=== PATIENT | female | born 1990 | race Caucasian/White ===

== ENCOUNTER 2016-09-09 19:51 | Emergency (ER) | payer OTHER ==
[2016-09-09 19:58] VITALS: BP 108/78; BMI 20.6
--- NOTE | 2016-09-09 21:13 | DR.GENAD ---
HPI - PCP Primary Care Physician: Eusebio Mcgee - HPI Comment HPI Comment: PAIN FROM SHOULDER DOWN TO WRIST. HAPPEN BEFORE COMING TO ED. - Complaint/Symptoms Chief Complaint Doctors Comments: PAIN LEFT UPPER EXTREMITIES. 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 Chief Complaint:: " I feel like my arm is broke (Left Arm) I was playing with the kids and they accidently jumped on it. I cant move it at all and it really hurts." - Nurses notes reviewed Nurses Notes Review: Yes - Source History Provided: Patient - Mode of Arrival Mode of Arrival: Ambulatory - Timing Onset of Chief Complaint: 09/09/16 Came on: Suddenly - Duration Duration: Constant Duration: Hours - Severity Severity: Moderate PMH - PMH Past Medical History: Yes Past Medical History: Diabetes, Dyslipidemia, Hypertension Past Surgical History: No - Family History History of Family Medical Conditions: Yes Family Medical History: Diabetes Mellitus, Cancer, Heart Failure - Social History Alcohol Use: None Do you use any recreational Drugs:: No Lives With: Family Lives Where: Home - infectious screening Have you traveled outside the country in the last 6 months?: No ROS - Review of Systems Constitutional: No Symptoms Reported Eyes: No Symptoms Reported ENTM: No Symptoms Reported Respiratoy: No Symptoms Reported Cardiovascular: No Symptoms Reported Gastrointestinal/Abdominal: No Symptoms Reported Genitourinary: No Symptoms Reported Neurological: No Symptoms Reported Musculoskeletal: Left, Arm, Forearm Integumentary: No Symptoms Reported Hematologic/Lymphatic: No Symptoms Reported Endocrine: No Symptoms Reported All Other Systems: Reviewed and Negative PE - Vital Signs Vitals: Temperature 98.7 F Pulse Rate 78 Respiratory Rate 18 Blood Pressure 108/78 O2 Sat by Pulse Oximetry 99 - General Limitations: No Limitations General Appearance: Alert - Head Head Exam: Normal Inspection - Eyes Eye exam: Normal Appearance - ENT ENT Exam: Normal External Ear Exam External Ear Exam: Normal External Inspection TM/Canal Exam: Bilateral Normal Nose Exam: Normal Nose Exam Mouth Exam: Normal Inspection Throat Exam: Normal Inspection - Neck Neck Exam: Trachea Midline - Chest Chest Inspection: Symmetric Chest Wall Rise - Respiratory Respiratory Exam: Normal Lung Sounds Bilat Respiratory Exam: Bilateral Clear to Auscultation - Cardiovascular Cardiovascular Exam: Regular Rate, Normal Rhythm, Normal Heart Sounds - Abdominal Exam Abdominal Exam: Normal Bowel Sounds, Soft. negative: Tenderness - Extremities Extremities Exam: Tenderness (LEFT ARM AND FOREARM.) - Back Back Exam: negative: Full ROM (DECREASE LEFT ARM AND FOREARM. ) - Neurologic Neurological Exam: Alert, Oriented X3 - Psychiatric Psychiatric Exam: Normal Affect, Normal Mood - Skin Skin Exam: Normal Color MDM - Differential Diagnosis Differential Diagnosis: CONTUSION, FRACTURE, SPRAIN, STRAIN LUE. Course - Treatment Treatment: SEE ORDERS. - Education/Counseling Education/Counseling: Patient, Education Educated On: Diagnosis, Needs for Follow Up ROR - XRAY XRAY Interpreted by: Radiologist XRAY Findings: REPORT DISCUSS WITH PATIENT. - Diagnosis Discharge Problem: Left wrist sprain Qualifiers: Encounter type: initial encounter Qualified Code(s): S63.502A - Unspecified sprain of left wrist, initial encounter Sprain of shoulder, left Qualifiers: Encounter type: initial encounter Shoulder sprain type: unspecified sprain Qualified Code(s): S43.402A - Unspecified sprain of left shoulder joint, initial encounter Contusion of left upper limb Qualifiers: Encounter type: initial encounter Qualified Code(s): S40.022A - Contusion of left upper arm, initial encounter - Discharge Plan Disposition: 01 HOME, SELF-CARE Condition: Stable Prescriptions: Acetaminophen W/ Codeine [Tylenol/Codeine #3 300-30 mg] 1 tab PO Q4-6H PRN #12 tab PRN Reason: Pain Ibuprofen [MOTRIN TAB 600 MG *] 600 mg PO TID PRN #20 tab PRN Reason: Pain/Inflammation - Follow ups/Referrals Follow ups/Referrals: EUSEBIO MCGEE [Primary Care Provider] - 09/13/16 - Instructions Instructions: Contusion, Shoulder Sprain, Wrist Sprain Additional Instructions: RETURN TO ED IF WORSE.
--- NOTE | 2016-09-09 21:45 | RAD ---
This left humerus two views Indication: Pain after fall. Findings: There is no cortical lucency or malalignment. Shoulder and elbow joints are intact. Impression: No acute left humerus fracture. Reported By:
--- NOTE | 2016-09-09 21:47 | RAD ---
Left forearm-two views Indication: Pain after fall. Findings: There is no cortical lucency or gross malalignment. Elbow joint and wrist joints appear gr ossly intact given limited visualization. Impression: No acute left forearm fracture. Reported By:
[2016-09-09] MEDS ORDERED: TYLENOL #3 TAB (W/CODEINE) PO ONE ×2 (22:06→22:14)
[2016-09-09] MEDS ORDERED: MOTRIN TAB 600 MG PO ONE ×2 (22:07→22:14)
== END 2016-09-09 22:25 | disposition home or self-care (01) ==
LOC: ER 20:04
DX: S63.502A Unspecified sprain of left wrist, initial encounter (principal); S43.402A Unspecified sprain of left shoulder joint, initial encounter; S40.022A Contusion of left upper arm, initial encounter; Y33.XXXA Other specified events, undetermined intent, initial encounter; Y92.9 Unspecified place or not applicable
CPT/HCPCS: 73060; 73090; 99282; 99283

== ENCOUNTER 2017-05-12 17:58 | Emergency (ER) | payer OTHER ==
[2017-05-12 18:06] VITALS: BP 141/78; BMI 20.1
--- NOTE | 2017-05-12 19:25 | DR.GENAD ---
HPI - PCP Primary Care Physician: NFD - Complaint/Symptoms Chief Complaint Doctors Comments: patient states that she was treated three ago for H pylori gastritis. She complains of LLQ pain w/o history of stones or recent UTI. She denies vomitng, diarrhea or fever. Chief Complaint:: PT C/O LLQ PAIN THAT STARTED X 30 MINS AGO. PT DENIES N/V, VAGINAL BLEEDING OR DISCHARGE - Source History Provided: Patient - Mode of Arrival Mode of Arrival: Ambulatory - Timing Onset of Chief Complaint: 05/12/17 PMH - PMH Past Medical History: Yes Past Medical History: Diabetes, Dyslipidemia, Hypertension Past Surgical History: No - Family History History of Family Medical Conditions: Yes Family Medical History: Diabetes Mellitus, Cancer, Heart Failure - Social History Does patient currently use any type of tobacco product: Yes Have you used tobacco products in the last 12 months: Yes Type of Tobacco Use: Cigarettes Does any household member use tobacco: Yes Alcohol Use: None Do you use any recreational Drugs:: No Lives With: Family Lives Where: Home - infectious screening In the last 2 months have you had wt loss of >10#?: NO Have you had fever, night sweats or hemotysis?: No Have you traveled outside the country in the last 6 months?: No Isolation: Standard ROS - Review of Systems Eyes: No Symptoms Reported ENTM: No Symptoms Reported Respiratoy: No Symptoms Reported Cardiovascular: No Symptoms Reported Gastrointestinal/Abdominal: Abdominal Pain (Left quadrant) Genitourinary: No Symptoms Reported Neurological: No Symptoms Reported Musculoskeletal: No Symptoms Reported Integumentary: No Symptoms Reported Hematologic/Lymphatic: No Symptoms Reported Endocrine: No Symptoms Reported Psychiatric: No Symptoms Reported All Other Systems: Reviewed and Negative PE - Vital Signs Vitals: Temperature 97.7 F Pulse Rate 836 Respiratory Rate 20 Blood Pressure 141/78 O2 Sat by Pulse Oximetry 100 - General Limitations: No Limitations General Appearance: Alert, In No Apparent Distress - Head Head Exam: Normal Inspection, Atraumatic - Eyes Eye exam: Normal Appearance, PERRL, EOMI - ENT ENT Exam: Normal Exam External Ear Exam: Normal External Inspection TM/Canal Exam: Bilateral Normal Nose Exam: Normal Nose Exam Mouth Exam: Normal Inspection Throat Exam: Normal Inspection - Neck Neck Exam: Normal Inspection, Full ROM - Chest Chest Inspection: Normal Inspection - Respiratory Respiratory Exam: Normal Lung Sounds Bilat Respiratory Exam: Bilateral Clear to Auscultation - Cardiovascular Cardiovascular Exam: Regular Rate, Normal Rhythm - Abdominal Exam Abdominal Exam: Normal Inspection, Normal Bowel Sounds Abdominal Tenderness: LUQ - Extremities Extremities Exam: Normal Inspection, Full ROM - Back Back Exam: Normal Inspection - Neurologic Neurological Exam: Alert, Oriented X3, CN II-XII Intact - Psychiatric Psychiatric Exam: Normal Affect - Skin Skin Exam: Warm, Dry, Intact ROR - Labs Reviewed Result Diagrams: 05/12/17 20:03 05/12/17 20: Laboratory: WBC 9.2 X10^3/uL (3.6-10.0) 05/12/17 20: RBC 4.64 X10^6/uL (3.5-5.4) 05/12/17 20: Hgb 13.9 g/dL (12.0-16.0) 05/12/17 20: Hct 40.1 % (36.0-47.0) 05/12/17 20: MCV 86.5 fL (80.0-100.0) 05/12/17 20: MCH 30.0 pg (27.0-34.0) 05/12/17 20: MCHC 34.6 g/dL (33.0-35.0) 05/12/17 20: RDW 12.4 % (11.6-16.5) 05/12/17 20: Plt Count 257 X10^3/uL (150.0-450.0) 05/12/17 20:03 MPV 8.9 fL (7.4-11.0) 05/12/17 20: Neut % 51.9 % (42.0-75.0) 05/12/17 20:03 Lymph % 40.0 % (21.0-51.0) 05/12/17 20: [place] % 6.0 % (0.0-13.0) 05/12/17 20: Eos % 1.5 % (0.9-2.9) 05/12/17 20:03 Baso % 0.6 % (0.2-1.0) 05/12/17 20: Neut # 4.8 x10^3/uL (2.2-4.8) 05/12/17 20: Lymph # 3.7 X10^3/uL (1.3-2.9) H 05/12/17 20:03 [place] # 0.6 x10^3/uL (0.3-0.8) 05/12/17 20:03 Eos # 0.1 x10^3/uL (0.0-0.2) 05/12/17 20:03 Baso # 0.1 X10^3/uL (0.0-0.1) 05/12/17 20:03 Absolute Nucleated RBC 0.1 /100WBC 05/12/17 20:03 Sodium 140 mmol/L (136-145) 05/12/17 20:03 Corrected Sodium TNP 05/12/17 20:03 Potassium 3.9 mmol/L (3.5-5.1) 05/12/17 20:03 Chloride 104 mmol/L (98-107) 05/12/17 20:03 Carbon Dioxide 29.2 mmol/L (21-32) 05/12/17 20:03 BUN 13 mg/dL (7-18) 05/12/17 20:03 Creatinine 0.84 mg/dL (0.55-1.02) 05/12/17 20:03 Est GFR (MDRD) Af Amer > 60 (>60) 05/12/17 20:03 Est GFR (MDRD) Non-Af > 60 (>60) 05/12/17 20:03 Glucose 92 mg/dL (65-99) 05/12/17 20:03 Calcium 8.9 mg/dL (8.5-10.1) 05/12/17 20:03 C-Reactive Protein 0.90 mg/L (0-3.0) 05/12/17 20:03 Specimen Type Clean catch urine 05/12/17 19:25 Urine Color Yellow (YELLOW) 05/12/17 19:25 Urine Appearance Slightly hazy (CLEAR) 05/12/17 19:25 Urine pH 7.0 (5.0 - 8.0) 05/12/17 19:25 Ur Specific [place] 1.010 (1.000-1.030) 05/12/17 19:25 Urine Protein Negative (NEGATIVE) 05/12/17 19:25 Urine Glucose (UA) Negative (NEGATIVE) 05/12/17 19:25 Urine Ketones Negative (NEGATIVE) 05/12/17 19:25 Urine Occult Blood 1+ (NEGATIVE) 05/12/17 19:25 Urine Nitrite Negative (NEGATIVE) 05/12/17 19:25 Urine Bilirubin Negative (NEGATIVE) 05/12/17 19:25 Urine Urobilinogen Normal (NORMAL) 05/12/17 19:25 Ur Leukocyte Esterase 1+ (NEGATIVE) 05/12/17 19:25 Urine RBC Rare /HPF (NEGATIVE) 05/12/17 19:25 Urine WBC 1 - 3 /HPF (NEGATIVE) 05/12/17 19:25 Ur Squamous Epith Cells Many /HPF (NEGATIVE) 05/12/17 19:25 Urine Bacteria Trace /HPF (NEGATIVE) 05/12/17 19:25 Ur Culture Indicated? No/not indicated 05/12/17 19:25 - XRAY XRAY Interpreted by: Radiologist (KUB:No evidence for acute abdominal or pelvic pathology identified) - Diagnosis Discharge Problem: Left lateral abdominal pain - Discharge Plan Condition: Stable - Follow ups/Referrals Follow ups/Referrals: NFD,None [Primary Care Provider] - 3 days - Instructions
[2017-05-12 19:33] LABS: BILIRUBIN,URINE NEGATIVE (NEGATIVE); BLOOD/HEMOGLOBIN,URINE 1+ (NEGATIVE); GLUCOSE, URINE NEGATIVE (NEGATIVE); KETONES,URINE NEGATIVE (NEGATIVE); LEUKOCYTE ESTERASE ,URINE 1+ (NEGATIVE); NITRITES,URINE NEGATIVE (NEGATIVE); PROTEIN,URINE NEGATIVE (NEGATIVE); UROBILINOGEN,URINE NORMAL (NORMAL)
[2017-05-12 19:35] LABS: APPEARANCE,URINE SLIGHTLY HAZY (CLEAR); COLOR,URINE YELLOW (YELLOW)
[2017-05-12 19:51] LABS: BACTERIA,URINE TRACE /HPF (NEGATIVE); RBC,URINE RARE /HPF (NEGATIVE); SQUAMOUS EPITHELIAL CELL,UR MANY /HPF (NEGATIVE)
[2017-05-12 20:12] LABS: BASOPHILS # (AUTO) 0.1 X10^3/uL (0.0-0.1); BASOPHILS % (AUTO) 0.6 % (0.2-1.0); EOSINOPHILS # (AUTO) 0.1 x10^3/uL (0.0-0.2); EOSINOPHILS % (AUTO) 1.5 % (0.9-2.9); HEMATOCRIT 40.1 % (36.0-47.0); HEMOGLOBIN 13.9 g/dL (12.0-16.0); LYMPHOCYTES # (AUTO) 3.7 X10^3/uL (1.3-2.9); MEAN CORPUSCULAR HGB CONC 34.6 g/dL (33.0-35.0); MEAN CORPUSCULAR VOLUME 86.5 fL (80.0-100.0); MEAN PLATELET VOLUME 8.9 fL (7.4-11.0); MONOCYTES # (AUTO) 0.6 x10^3/uL (0.3-0.8); NEUTROPHILS # (AUTO) 4.8 x10^3/uL (2.2-4.8); NEUTROPHILS % (AUTO) 51.9 % (42.0-75.0); PLATELET COUNT 257 X10^3/uL (150.0-450.0); RED BLOOD COUNT 4.64 X10^6/uL (3.5-5.4); RED CELL DISTRIBUTION WIDTH 12.4 % (11.6-16.5); WHITE BLOOD COUNT 9.2 X10^3/uL (3.6-10.0)
[2017-05-12 20:18] LABS: BLOOD UREA NITROGEN 13 mg/dL (7-18); CALCIUM 8.9 mg/dL (8.5-10.1); CARBON DIOXIDE 29.2 mmol/L (21-32); CHLORIDE 104 mmol/L (98-107); CREATININE 0.84 mg/dL (0.55-1.02); SODIUM 140 mmol/L (136-145); eGFR BLACK RACES > 60 (>60); eGFR NON BLACK RACES > 60 (>60)
--- NOTE | 2017-05-12 21:37 | RAD ---
KUB Indication: Left lower quadrant pain Comparison: None available Findings: There is a normal bowel gas pattern. No free air or pneumatosis. No pathological soft tissue mass or calcification can be observed. The bony structures are grossly intact. IMPRESSION: No evidence for acute abdominal or pelvic pathology identified. Reported By:
== END 2017-05-12 22:00 | disposition home or self-care (01) ==
LOC: ER 18:09
DX: R10.32 Left lower quadrant pain (principal)
CPT/HCPCS: 36415; 74018; 80048; 81001; 85025; 86140; 99283

== ENCOUNTER 2017-05-18 10:17 | Day surgery (SDC) | payer OTHER ==
[2017-05-18] MEDS ORDERED: D5 LR 1000 ML 1,000 ML IV ONE (10:37)
[2017-05-18] MEDS ORDERED: DIPRIVAN VIAL 20 ML ONE ×2 (11:07→11:17)
[2017-05-18 13:20] VITALS: BP 118/68
== END 2017-05-18 11:50 | disposition home or self-care (01) ==
LOC: SURG1 10:17
PROVIDERS: ATTEND Internal Medicine Gastroenterology
PROC: 0DJ08ZZ Inspection of Upper Intestinal Tract, Via Natural or Artificial Opening Endoscopic (ICD-10-PCS; principal; 2017-05-18 18:00)
PROC: 0DB68ZX Excision of Stomach, Via Natural or Artificial Opening Endoscopic, Diagnostic (ICD-10-PCS; principal; 2017-05-18 18:00)
PROC: 0D757ZZ Dilation of Esophagus, Via Natural or Artificial Opening (ICD-10-PCS; principal; 2017-05-18 18:00)
PROC: 0DB88ZX Excision of Small Intestine, Via Natural or Artificial Opening Endoscopic, Diagnostic (ICD-10-PCS; principal; 2017-05-18 18:00)
PROC: 0DB58ZX Excision of Esophagus, Via Natural or Artificial Opening Endoscopic, Diagnostic (ICD-10-PCS; principal; 2017-05-18 18:00)
DX: R13.19 Other dysphagia (principal); R10.13 Epigastric pain; K20.8 Other esophagitis; K22.2 Esophageal obstruction; K22.4 Dyskinesia of esophagus; K25.9 Gastric ulcer, unspecified as acute or chronic, without hemorrhage or perforation; K29.60 Other gastritis without bleeding; K92.1 Melena
CPT/HCPCS: A4217; J3490; J7120